=== PATIENT | female | born 1960 | race Two or more races ===

== ENCOUNTER 2020-12-02 10:04 | Outpatient (CLI) | payer OTHER | END 2020-12-02 10:12 | disposition home or self-care (01) | LOC: RAD 10:04 | PROVIDERS: ATTEND Internal Medicine Cardiovascular Disease | DX: I10 Essential (primary) hypertension (principal); Z13.0 Encounter for screening for diseases of the blood and blood-forming organs and certain disorders involving the immune mechanism; Z99.89 Dependence on other enabling machines and devices ==

== ENCOUNTER → 2020-12-09 09:43 | Outpatient (CLI) | payer OTHER | END | disposition home or self-care (01) | LOC: LAB 09:43 | PROVIDERS: ATTEND Internal Medicine Cardiovascular Disease | DX: Z13.1 Encounter for screening for diabetes mellitus (principal); E03.8 Other specified hypothyroidism; N39.9 Disorder of urinary system, unspecified; Z12.11 Encounter for screening for malignant neoplasm of colon; I10 Essential (primary) hypertension ==

== ENCOUNTER 2020-12-15 08:07 | Outpatient (CLI) | payer OTHER | END 2020-12-15 08:12 | disposition home or self-care (01) | LOC: LAB 08:07 | DX: Z20.828 Contact with and (suspected) exposure to other viral communicable diseases (principal) ==

== ENCOUNTER 2022-03-02 09:56 | Outpatient (CLI) | payer OTHER | END 2022-03-02 10:04 | disposition home or self-care (01) | LOC: LAB 09:56 | DX: N39.0 Urinary tract infection, site not specified (principal); R10.84 Generalized abdominal pain ==